=== PATIENT | female | born 1940 | race Caucasian/White ===

== ENCOUNTER 2018-11-29 10:25 | Inpatient (IN) | payer BC ==
[~2018-11-29] VITALS: Ht 157.5 cm; Wt 70.3 kg
[2018-11-29 10:31] VITALS: BP_SYST 148
--- NOTE | 2018-11-29 10:35 | NUR ---
Patient to ER bed 7 to gown for evaluation. Side rails up. Report given to Kim GUTIERREZ.
--- NOTE | 2018-11-29 10:37 | NUR ---
ER Dr. Welsh at bedside examining patient.
--- NOTE | 2018-11-29 10:37 | NUR ---
Mark flores in ED - 11/29/18 at 1037 by [email or web address] [facility]. Side rails up. Report given to Kim GUTIERREZ.
--- NOTE | 2018-11-29 10:43 | NUR ---
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
[2018-11-29] MEDS ORDERED: MORPHINE 4 MG/ML INJ. SYRINGE IVP ONE (10:45)
[2018-11-29] MEDS ORDERED: ONDANSETRON HCL 4 MG/2 ML VIAL IVP ONE (10:45)
[2018-11-29] MEDS ORDERED: CLINDAMYCIN 900 mg/50mL D5W 50 ML IV ONE (10:45)
[2018-11-29] MEDS ORDERED: NS 1000 ML IV.SOLN IV ONE (10:45)
--- NOTE | 2018-11-29 10:45 | NUR ---
Patient returning to ER from yesterday as she is having pain in left eye. Left eye has redness and swelling. Patient prescribed naprosyn last night but was unable to fill prescription as pharmacy was closed. at bedside.
[2018-11-29 11:28] LABS: BASOPHILS # (AUTO) 0.5 K/uL (0.0-0.2); BASOPHILS % (AUTO) 4.4 % (0.0-2.0); EOSINOPHILS # (AUTO) 0.1 K/uL (0.0-0.4); EOSINOPHILS % (AUTO) 0.5 % (0.0-4.0); HEMATOCRIT 40.1 % (36-48); HEMOGLOBIN 13.5 g/dL (12.0-16.0); LYMPHOCYTES # (AUTO) 2.3 K/uL (1.0-5.5); LYMPHOCYTES % (AUTO) 19.1 % (20.5-51.5); MEAN CORPUSCULAR HEMOGLOBIN 32 pg (27-31); MEAN CORPUSCULAR HGB CONC 34 % (32-36); MEAN CORPUSCULAR VOLUME 95 fL (79.0-98.0); MONOCYTES % (AUTO) 8.3 % (1.7-9.3); NEUTROPHILS # (AUTO) 8.3 K/uL (1.8-7.7); NEUTROPHILS % (AUTO) 67.7 % (40.0-70.0); PLATELET COUNT (AUTO) 203 K/uL (130-430); RED BLOOD CELL COUNT(AUTO) 4.23 MIL/uL (4.2-6.2); RED CELL DISTRIBUTION WIDTH 12.9 % (9.0-15.0)
--- NOTE | 2018-11-29 11:30 | NUR ---
Pt resting on gurney, no signs of acute distress, at bedside.
[2018-11-29 11:33] LABS: WHITE BLOOD COUNT (AUTO) 12.2 K/uL (4.8-10.8)
[2018-11-29 11:40] LABS: ANION GAP 11 (5-15); CALCIUM 9.6 mg/dL (8.4-11.0); CHLORIDE 105 mmol/L (98-107); CREATININE 0.79 mg/dL (0.55-1.30); GLUCOSE 102 mg/dL (70-99); POTASSIUM 3.7 mmol/L (3.5-5.1); SODIUM SERUM 136 mmol/L (136-145); UREA NITROGEN, BLOOD 11 mg/dL (8-21)
[2018-11-29 11:44] LABS: PROTHROMBIN TIME 10.1 SECS (9.5-12.5)
[2018-11-29 11:47] LABS: BILIRUBIN,URINE NEGATIVE (NEGATIVE); BLOOD, URINE NEGATIVE (NEGATIVE); CLARITY/URINE CLEAR (CLEAR); COLOR,URINE YELLOW (YELLOW); GLUCOSE,URINE NEGATIVE (NEGATIVE); KETONES,URINE NEGATIVE (NEGATIVE); LEUKOCYTE ESTERASE ,URINE TRACE (NEGATIVE); NITRITE, URINE NEGATIVE (NEGATIVE); PROTEIN URINE NEGATIVE (NEGATIVE)
[2018-11-29 11:47] LABS: ALANINE AMINOTRANSFERASE 34 U/L (12-78); AMYLASE 35 U/L (0-100); ASPARTATE AMINOTRANSFERASE 28 U/L (10-37); LIPASE 172 U/L (73-393); TOTAL BILIRUBIN 0.9 mg/dL (0.0-1.0)
[2018-11-29 11:59] LABS: BACTERIA,URINE None Seen /HPF (None Seen); RBC,URINE 0-3 /HPF (0-3)
[2018-11-29 12:05] LABS: ERYTHROCYTE SEDIMENTATION RATE 30 MM/HR (0-20)
[2018-11-29] MEDS ORDERED: LEVO88TA2 PO ×2 (12:41)
[2018-11-29] MEDS ORDERED: XALEYE LEFT EYE (12:41)
[2018-11-29] MEDS ORDERED: DORZ10DR9 EACH EYE (12:41)
[2018-11-29] MEDS ORDERED: ACYC400T PO (12:41)
[2018-11-29] MEDS ORDERED: DIA250 PO (12:41)
[2018-11-29] MEDS ORDERED: RANI-362 PO (12:41)
[2018-11-29] MEDS ORDERED: CEPH250C PO (12:42)
--- NOTE | 2018-11-29 12:45 | NUR ---
Medication reconciliation completed with information provided by pts . Any prior medication reconciliation on file was reviewed and corrected.
[2018-11-29] MEDS ORDERED: 0.45% NACL 1,000 ML IV ONE (13:15)
[2018-11-29] MEDS ORDERED: ENOXAPARIN SODIUM 30 MG/0.3 ML SYRINGE SUBCUT ONE (13:15)
[2018-11-29] MEDS ORDERED: PIPERACILLIN/TAZO 3.375 GM in NS 50 ML IV ONE (13:15)
[2018-11-29] MEDS ORDERED: ONDANSETRON HCL 4 MG/2 ML VIAL IVP PRN (13:15)
[2018-11-29] MEDS ORDERED: VANCOMYCIN HCL 1,500 MG in NS 250 ML IV ONE (13:30)
--- NOTE | 2018-11-29 13:32 | NUR ---
Admission Note Received patient from ER with diagnosis of Cellulitis of the Face. Initial Plan of Care discussed-patient verbalized understanding. Oriented to room, call light, pain management and safety.
--- NOTE | 2018-11-29 13:35 | NUR ---
Patient will be admitted to care of Dr. Mar. Admitted to medsur unit. Will go to room 106a. Belongings list completed. Summary report printed. Report will be given at bedside. Transfer to [facility]. IV present no sign or symptom of infiltration.
--- NOTE | 2018-11-29 13:40 | NUR ---
CONSULTATION PAGED REASON FOR CONSULTATION:CELLULITIS WAS CONSULT CALLED?Y PERSON WHO WAS NOTIFIED:PRIS[place] CONSULTING PHYSICIAN:MEGAN BOWLING PRODUCT SCIENTIST SPECIALTY:INFECTIOUS DISEASE PRODUCT SCIENTIST PHONE NUMBER:[phone] ORDERING PHYSICIAN:KRISTOPHER RAMIREZ
[2018-11-29 13:45] VITALS: BP_SYST 139
--- NOTE | 2018-11-29 16:00 | NUR ---
MARCY Mar regarding medication reconciliation. Awaiting call back.
[2018-11-29 16:16] VITALS: BP_SYST 129
--- NOTE | 2018-11-29 16:30 | NUR ---
CALLED PHARMACY Notified pharmacy that scheduled Zosyn dose at 1315 is not available yet in the medication room. Pharmacy states they will bring the medication.
[2018-11-29] MEDS: ACETAMINOPHEN 325 MG TABLET PO PRN (16:36)
--- NOTE | 2018-11-29 16:49 | NUR ---
FEVER Patient experiencing a temperature of 101.4 Cooling measures done, PRN Tylenol given. Will cont. to monitor.
--- NOTE | 2018-11-29 17:11 | NUR ---
TEMPERATURE REASSESSED Patient's temporal temperature is now 99.5. Will cont. to monitor. Addendum: 11/29/18 at 1815 by Alma Bermudez RN TEMP ASSESSED AGAIN Temperature is now 98.8.
--- NOTE | 2018-11-29 18:00 | NUR ---
AMBULATING Patient walked with a slow and steady gait to restroom. No s/s of distress or SOB. Minimal assistance needed.
--- NOTE | 2018-11-29 18:15 | NUR ---
CLOSING NOTES Patient in bed awake, alert, oriented. No s/s of distress or SOB. All needs met throughout shift. IV site patent, intact, dressing is dry. Safety and fall precautions maintained throughout shift. Bed in lowest position, call light within reach. Will endorse to oncoming RN. at bedside.
--- NOTE | 2018-11-29 19:35 | NUR ---
OPENING NOTES Pt and endorsement received from day shift nurse. Pt is AAOx4, lying in bed while watching tv. Pt on IVF of NS at 70ml/hr on right wrist G20. No complains of pain at this time. No signs of acute distress or SOB noted. Encouraged to use call light when needed. Bed alarm on and at lowest level and call light with pt. Will continue to monitor.
--- NOTE | 2018-11-29 19:45 | NUR ---
MEDS Pt is insisting to take her medication Acyclovir 400mg PO and Xalatan eye drops, she said she should have taken the medication earlier at 1900. Explained to the pt that I am waiting for the MD to call back and order the medication. Pt still insist to take her medication as it was prescribed by her primary doctor to take it on time. Pt states, "This meds are for my eyes, I am already blind on my right eye and I don't want my left to go blind." Will page MD again.
--- NOTE | 2018-11-29 19:53 | NUR ---
PT TOOK MEDS MD paged and waiting to call back. Pt took her medication Acyclovir 400mg PO and Xalatan eyedrops and explained to her that I did not give nor advised her to take the medication but it's her own will that she took her medication despite explaining to her that we are waiting for MD to call back. Pt verbalizes understanding and informed charge nurse Joshua.
--- NOTE | 2018-11-29 20:15 | NUR ---
SPOKE TO DR. CHERY Spoke to Dr. Chery and told her the pt wanting to continue her medication Acyclovir 400mg, Synthroid 88mcg and Xalatan eye drops. Dr Chery said to continue all 3 medications. Read back order and will carry out.
[2018-11-29] MEDS ORDERED: LATANOPROST 2.5 ML DROPS (XALATAN) LEFT EYE SCH (21:00)
[2018-11-29] MEDS: ACYCLOVIR 400 MG TABLET PO SCH (21:00)
[2018-11-29 21:30] VITALS: BP_SYST 129
--- NOTE | 2018-11-29 23:51 | NUR ---
RESTING Pt is resting in bed with both eyes closed. With visible chest rise and fall with unlabored breathing noted. No signs of acute distress or SOB noted. Safety precautions in place and call light with pt. Will continue to monitor.
[2018-11-30 00:40] VITALS: BP_SYST 123
--- NOTE | 2018-11-30 03:55 | NUR ---
RESTING Pt is resting in bed with both eyes closed. With visible chest rise and fall with unlabored breathing noted. No signs of acute distress and no complains of pain or discomfort. Safety precautions in place and call light with pt. Will continue to monitor.
--- NOTE | 2018-11-30 06:49 | NUR ---
CLOSING NOTES Pt is AAOx4, lying in bed while watching tv. No complains of pain or discomfort at this time. No signs of acute distress noted. All needs attended throughout the shift. Safety precautions maintained and call light with pt. Will endorse to day shift nurse.
[2018-11-30 06:55] LABS: BASOPHILS # (AUTO) 0.1 K/uL (0.0-0.2); EOSINOPHILS # (AUTO) 0.1 K/uL (0.0-0.4); HEMATOCRIT 35.5 % (36-48); LYMPHOCYTES # (AUTO) 1.5 K/uL (1.0-5.5); LYMPHOCYTES % (AUTO) 19.8 % (20.5-51.5); MEAN CORPUSCULAR HEMOGLOBIN 32 pg (27-31); MEAN CORPUSCULAR HGB CONC 34 % (32-36); MEAN CORPUSCULAR VOLUME 95 fL (79.0-98.0); MONOCYTES # (AUTO) 0.6 K/uL (0.0-1.0); MONOCYTES % (AUTO) 8.7 % (1.7-9.3); NEUTROPHILS # (AUTO) 5.1 K/uL (1.8-7.7); NEUTROPHILS % (AUTO) 68.5 % (40.0-70.0); PLATELET COUNT (AUTO) 221 K/uL (130-430); RED BLOOD CELL COUNT(AUTO) 3.74 MIL/uL (4.2-6.2); RED CELL DISTRIBUTION WIDTH 12.5 % (9.0-15.0); WHITE BLOOD COUNT (AUTO) 7.4 K/uL (4.8-10.8)
[2018-11-30 07:04] LABS: ANION GAP 10 (5-15); CHLORIDE 109 mmol/L (98-107); CREATININE 0.82 mg/dL (0.55-1.30); GLUCOSE,RANDOM 90 mg/dl (70-99); POTASSIUM 3.8 mmol/L (3.5-5.1); SODIUM SERUM 140 mmol/L (136-145); UREA NITROGEN, BLOOD 9 mg/dL (8-21)
[2018-11-30] MEDS: LEVOTHYROXINE SODIUM 0.088 MG TABLET PO SCH (07:41)
[2018-11-30] MEDS: ACYCLOVIR 400 MG TABLET PO SCH ×2 (07:50→21:05)
[2018-11-30] MEDS: ENOXAPARIN SODIUM 30 MG/0.3 ML SYRINGE SUBCUT SCH (07:50)
[2018-11-30 08:00] VITALS: BP_SYST 132
--- NOTE | 2018-11-30 08:00 | NUR ---
A/Ox4, ambulatory. IV on right wrist, #20, SL. Patient demands to have Cosopt given to her, but she is informed that the pharmacy has it. Will obtain 's order for it, and Dr. Adler is called. Awaiting call back.
[2018-11-30] MEDS ORDERED: NS IV SCH (09:00)
[2018-11-30] MEDS ORDERED: ACYCLOVIR IV SCH (09:00)
[2018-11-30] MEDS ORDERED: PIPERACILLIN/TAZO 3.375/DEX-IS 50 ML IV SCH (09:00)
[2018-11-30 09:54] LABS: CALCIUM 9.3 mg/dL (8.4-10.2)
--- NOTE | 2018-11-30 09:58 | NUR ---
CONSULTATION PAGED REASON FOR CONSULTATION:LEFT FACE CELLULITIS WAS CONSULT CALLED?Y PERSON WHO WAS NOTIFIED:[place] CONSULTING PHYSICIAN:LEEANNE BOWLING ELECTRON BEAM MACHINE WELDER SETTER SPECIALTY:INFECTIOUS DISEASE ELECTRON BEAM MACHINE WELDER SETTER PHONE NUMBER:[phone] ORDERING PHYSICIAN:CHANDRAKANT REYES
[2018-11-30 10:03] LABS: ANION GAP 9 (5-15); CALCIUM 9.3 mg/dL (8.4-11.0); CHLORIDE 111 mmol/L (98-107); GLUCOSE 89 mg/dL (70-99); POTASSIUM 3.9 mmol/L (3.5-5.1); SODIUM SERUM 140 mmol/L (136-145); UREA NITROGEN, BLOOD 9 mg/dL (8-21)
[2018-11-30 10:04] LABS: CREATININE 0.77 mg/dL (0.55-1.30)
[2018-11-30] MEDS: DORZOLAMIDE HCL/TIMOLOL MAL. 10 ML EYE DROPS (COSOPT) OP SCH ×2 (10:10→21:04)
[2018-11-30 10:18] LABS: ASPARTATE AMINOTRANSFERASE 33 U/L (10-37); TOTAL BILIRUBIN 0.6 mg/dL (0.0-1.0)
[2018-11-30 10:19] LABS: ALANINE AMINOTRANSFERASE 42 U/L (12-78); ALBUMIN 2.6 g/dL (3.4-4.8)
[2018-11-30 11:27] VITALS: BP_SYST 139
--- NOTE | 2018-11-30 12:00 | NUR ---
patient is eating lunch at this time. No signs of distress noted.
[2018-11-30] MEDS ORDERED: IOHEXOL 100 ML IV ONE (13:21)
[2018-11-30] MEDS ORDERED: VANCOMYCIN HCL 750 MG/NS 250 ML IV SCH (14:00)
--- NOTE | 2018-11-30 14:00 | NUR ---
PATIENT TO CT SCAN BY WC. NO SIGNS OF DISTRESS NOTED.
[2018-11-30] MEDS: ceFAZolin SODIUM 1 GM in D5W 50 ML IV SCH ×2 (14:53→21:05)
--- NOTE | 2018-11-30 14:58 | NUR ---
PATIENT RETURNS FROM CT CONTRAST. NO SIGNS OF DISTRESS NOTED.
[2018-11-30 15:16] VITALS: BP_SYST 128
--- NOTE | 2018-11-30 17:00 | NUR ---
PATIENT IS RESTING, NO SIGNS OF DISTRESS NOTED.
--- NOTE | 2018-11-30 18:54 | NUR ---
PATIENT IS RESTING. NO SIGNS OF DISTRESS NOTED.
[2018-11-30] MEDS: ACETAMINOPHEN 325 MG TABLET PO PRN (19:34)
--- NOTE | 2018-11-30 19:34 | NUR ---
Initial Note Received patient awake, alert and oriented. No SOB noted. Denies any nausea or vomiting at this time. Complain of headache. Cooling measures provided and medicated for pain. Left facial redness noted but otherwise skin intact. Saline lock on left wrist patent. Removed right wrist salin lock per patient's request. Skin intact and no peripheral edema. Care and monitoring will be provided per protocol. Call light within reach. Bed alarm off per patient's request. Bed at lowest position at all times. Needs attended. Kept warm and comfortable.
[2018-11-30 20:00] VITALS: BP_SYST 156
[2018-11-30] MEDS ORDERED: LATANOPROST 2.5 ML DROPS (XALATAN) LEFT EYE SCH (21:00)
--- NOTE | 2018-11-30 21:00 | NUR ---
RN Note Due meds given, tolerated well. at the bedside. Gilbert relieved from headache and pain on previous saline lock. Assisted to the bathroom with steady gait and no SOB. IV antibiotic infusing. Needs attended. Kept warm and comfortable.
--- NOTE | 2018-11-30 22:00 | NUR ---
RN Note Patient's left earlier. IV antibiotic done. Patient ambulated to the bathroom and back to bed with steady gait and no SOB. Needs attended. Kept warm and comfortable.
--- NOTE | 2018-12-01 00:30 | NUR ---
RN Note Sleeping at this time. No SOB or grimacing noted.
[2018-12-01 01:49] VITALS: BP_SYST 140
--- NOTE | 2018-12-01 03:00 | NUR ---
RN Note Asleep, moves occasionally. Repositions herself. No distress noted.
[2018-12-01] MEDS: ceFAZolin SODIUM 1 GM in D5W 50 ML IV SCH ×2 (05:33→14:11)
[2018-12-01] MEDS: LEVOTHYROXINE SODIUM 0.088 MG TABLET PO SCH (06:08)
--- NOTE | 2018-12-01 06:22 | NUR ---
End Note Afebrile. VS stable. Medicated for headache last night. No complain of pain or n/v at this time. Ambulates to the bathroom with steady gait and had a BM. Left facial swelling and redness present. Offered warm compress but refused. IV leaking, will insert another IV line. Care and monitoring provided per protocol. Needs attended. Call light within reach. Bed alarm off per patient's request and at lowest position at all times. Bleeding precaution observed. Kept warm and comfortable.
[2018-12-01 08:00] VITALS: BP_SYST 151
--- NOTE | 2018-12-01 08:00 | NUR ---
initial notes rec patient awake alert with hob elevated. ivl on the l hand intact.no infiltration noted. swelling noted on the l face and with redness noted.bed to the lowest position and side rails up and locked. fall/ safety precaution reinforced. call light within reached and knows when to call for assistance.
[2018-12-01] MEDS: DORZOLAMIDE HCL/TIMOLOL MAL. 10 ML EYE DROPS (COSOPT) OP SCH (08:45)
[2018-12-01] MEDS: ENOXAPARIN SODIUM 30 MG/0.3 ML SYRINGE SUBCUT SCH (08:46)
[2018-12-01] MEDS: ACYCLOVIR 400 MG TABLET PO SCH (08:46)
--- NOTE | 2018-12-01 10:00 | NUR ---
rounds due meds given and claudia well. denies pain and resting comfortably. call light within reached.
[2018-12-01 11:39] VITALS: BP_SYST 146
--- NOTE | 2018-12-01 14:00 | NUR ---
rounds due med will be given . resting quietly . no sob noted. call light within reached.
[2018-12-01 15:28] VITALS: BP_SYST 137
--- NOTE | 2018-12-01 17:00 | NUR ---
rounds seen by dr calvillo and will send home the patient. waiting for arrangement of home health prior to discharging patient.
--- NOTE | 2018-12-01 17:04 | NUR ---
DC PLAN / IV ABX Home IV abx Rocephin 2 grams daily x 7 days, per Dr. Adler can be started tomorrow, is being arranged. Patient doesn't need to wait and can be discharge home, nurse informed. Patient will receive a call later this evening regarding delivery of IV medications at home and IV nurse visit to start IV tomorrow. Follow up with PCP and ENT will be arranged and patient will be called once appointments has been arranged. Coral Bunch, HCP Primary School Teacher Librarian [phone]
[2018-12-01 18:32] VITALS: BP_SYST 137
--- NOTE | 2018-12-01 19:00 | NUR ---
closing notes pt was discharged with ivl for 7 days abx therapy as per dr acevedo. home health nurse called re pt's address and heplock site. no infiltration noted and patent. discussed re continuing home meds and follow up with ent md. home meds were given back to patient from pharmacy. stable and needs attended. pt was wheeled outside via wheelchair.
--- NOTE | 2018-12-02 15:09 | NUR ---
DISCHARGE FOLLOW UP PHONE CALL INFORMATION TECHNOLOGY MANAGER phoned and spoke with pt who stated she is doing well except that there are concerns about HH. Per pt, she [facility] a teaching nurse will be coming in to teach spouse on how to administer IV meds. Pt was concern and verbalized that she is not comfortable with this set-up and that she would rather have a nurse administer it instead because she is a hard stick. INFORMATION TECHNOLOGY MANAGER phoned Coral Richmond, HCP Avionics Shop Supervisor and informed of the issue but Coral stated a nurse will have to administer it. INFORMATION TECHNOLOGY MANAGER spoke and confirmed with Kassie @ [phone] of pt's HH appointment today (12/02) at 3PM. Per Kassie, appointment is on schedule and is aware that the patient is not comfortable with administering the meds; pt informed. INFORMATION TECHNOLOGY MANAGER also received follow up appointments from HCP, and information were relayed to pt. Pt's PCP appointment with Dr. Morris is schedule for 12/09 @11:[address] Ivon Guillen on 12/04 @9:15. HCP will call pt when infectious disease appointment has been made. Pt took and read back information given. INFORMATION TECHNOLOGY MANAGER encouraged pt to call SS and HCP if any questions arise. At this time, no further follow up call is needed.
== END 2018-12-01 19:00 | disposition home health service (06) | DRG 872 ==
LOC: SED 10:25 → SMU 13:11
PROVIDERS: ADMIT Internal Medicine; ATTEND Internal Medicine
DX: A41.9 Sepsis, unspecified organism (principal); L03.211 Cellulitis of face; E44.0 Moderate protein-calorie malnutrition; E03.9 Hypothyroidism, unspecified; H04.302 Unspecified dacryocystitis of left lacrimal passage; B02.9 Zoster without complications; H54.40 Blindness, one eye, unspecified eye; H40.9 Unspecified glaucoma; Z88.7 Allergy status to serum and vaccine; Z86.19 Personal history of other infectious and parasitic diseases; Z88.8 Allergy status to other drugs, medicaments and biological substances
CPT/HCPCS: 36415; 70487; 80053; 80069; 81000-TC; 82150-TC; 83605; 83690-TC; 85025; 85610-TC; 85651-TC; 85730-TC; 87040-TC; 96374; 96375; 99285; J0133; J0690; J1650; J2270; J2405; J2543; J3370; J3490; J7050; J7060; Q9967